=== PATIENT | female | born 1945 | race Caucasian/White ===

== ENCOUNTER 2019-04-26 00:23 | Emergency (ER) | payer BC, MEDICARE ==
[2019-04-26] MEDS ORDERED: Bacitracin Oint 1 GM U/D Packet TOP ONE (00:33)
--- NOTE | 2019-04-26 01:23 | EDM.PDOC ---
ED HPI GENERAL MEDICAL PROBLEM - General Chief Complaint: Laceration Stated Complaint: FALL VIA NORTH Time Seen by Provider: 04/26/19 00:45 Source of Information: Reports: Patient, EMS, Family History Limitations: Reports: No Limitations - History of Present Illness INITIAL COMMENTS - FREE TEXT/NARRATIVE: 73-year-old female who fell earlier this evening and was evaluated by EMS, had a very small laceration on her left eyebrow and she was cleared medically. A second call however after a second fall, resulting in a large laceration and more repetitive questioning and she seemed intoxicated. She is brought in for evaluation. Associated Symptoms: Reports: Confusion. Denies: Malaise, Nausea/Vomiting, Shortness of Breath - Related Data Allergies Allergy/AdvReac Type Severity Reaction Status Date / Time diphenhydramine Allergy Other Verified 04/26/19 00:42 [From Benadryl] latex Allergy Other Verified 04/26/19 00:42 Sgweaaz-Fbc-Msl Reductase Allergy Other Verified 04/26/19 00:42 Inhibitor metal Allergy Other Uncoded 04/26/19 00:42 Home Meds: Home Meds Aspirin [Halfprin] 81 mg PO DAILY 04/26/19 [History] Past Medical History HEENT History: Reports: Cataract Cardiovascular History: Reports: High Cholesterol, Hypertension Gastrointestinal History: Reports: GERD Musculoskeletal History: Reports: Arthritis, Osteoporosis Endocrine/Metabolic History: Reports: Diabetes, Type II - Past Surgical History HEENT Surgical History: Reports: Cataract Surgery GI Surgical History: Reports: Other (See Below) Other GI Surgeries/Procedures: rectal prolapse surgery Social & Family History - Tobacco Use Smoking Status *Q: Never Smoker - Caffeine Use Caffeine Use: Reports: Coffee - Alcohol Use Days Per Week of Alcohol Use: 7 Number of Drinks Per Day: 2 Total Drinks Per Week: 14 - Recreational Drug Use Recreational Drug Use: No ED ROS GENERAL - Review of Systems Review Of Systems: See Below Constitutional: Denies: Fever, Chills HEENT: Denies: Vision Change Respiratory: Denies: Shortness of Breath Cardiovascular: Denies: Chest Pain Musculoskeletal: Reports: Other (Ankles have been weak and bothering her) Skin: Reports: Other (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) ED EXAM, SKIN/RASH Exam: See Below Exam Limited By: No Limitations General Appearance: Alert, No Apparent Distress, Other (Repetitive questioning) Eye Exam: Bilateral Eye: EOMI Head: Other (Patient has a 3 cm laceration just lateral to the left eyebrow) Neck: Supple Respiratory/Chest: No Respiratory Distress Extremities: No: Pedal Edema Neurological: Alert, Oriented, Confused (Slightly confused with repetitive questioning) Course - Vital Signs Last Recorded V/S: Last Vital Signs Temp 96.8 F 04/26/19 00:36 Pulse 86 04/26/19 00:36 Resp 18 04/26/19 00:36 BP 141/84 H 04/26/19 00:36 Pulse Ox 93 L 04/26/19 00:36 - Orders/Labs/Meds Labs: Laboratory Tests 04/26/19 Range/Units 00:45 Ethyl Alcohol 286 mg/dL Meds: Medications Discontinued Medications Generic Name Dose Route Start Last Admin Trade Name Kathrine PRN Reason Stop Dose Admin Bacitracin 1 dose 04/26/19 00:33 04/26/19 00:43 Bacitracin Oint 1 Gm TOP 04/26/19 00:34 1 dose ONETIME ONE Administration Lidocaine HCl 5 ml 04/26/19 00:33 04/26/19 00:43 Xylocaine-Mpf 1% INJECT 04/26/19 00:34 5 ml ONETIME ONE Administration - Re-Assessments/Exams Free Text/Narrative Re-Assessment/Exam: 04/26/19 01:23 CT of the head was obtained and an EtOH was drawn. CT showed no acute findings, her EtOH was 0.286. 4 5-0 Ethilon sutures used to close the laceration. Topical bacitracin and a dressing was applied. Sutures can be removed in 7 days. She should avoid such heavy intoxication in the future. Departure - Departure Time of Disposition: 02:08 Disposition: Home, Self-Care 01 Clinical Impression: Laceration of eyebrow and forehead Qualifiers: Encounter type: initial encounter Laterality: left Qualified Code(s): S01.81XA - Laceration without foreign body of other part of head, initial encounter Alcohol intoxication Qualifiers: Complication of substance-induced condition: uncomplicated Qualified Code(s): F10.920 - Alcohol use, unspecified with intoxication, uncomplicated - Discharge Information Instructions: Laceration Care, Adult, [id number] Referrals: PCP,None [Primary Care Provider] - Forms: ED Department Discharge Care Plan Goals: Cool compresses over your laceration will help with swelling, keep the wound clean while healing. Sutures can be removed in 7 days. Return sooner if you develop concerns of infection or not healing satisfactorily.
--- NOTE | 2019-04-26 01:38 | CRLCT ---
INDICATION: Fall, confusion TECHNIQUE: CT head without contrast. COMPARISON: None FINDINGS: CSF spaces: Within normal limits for age. Brain parenchyma: The haas-white differentiation is normal. No sign of mass, hemorrhage, or midline shift. Skull base and calvarium: The visualized paranasal sinuses and mastoid air cells demonstrate no acute or significant findings. The visualized orbits are grossly unremarkable. No skull fractures. IMPRESSION: No acute intracranial abnormality. Please note that all CT scans at this facility use dose modulation, iterative reconstruction, and/or weight-based dosing when appropriate to reduce radiation dose to as low as reasonably achievable. Dictated by Shelbie Ribera MD @ Apr 26 2019 1:34AM Signed by Dr. Shelbie Ribera @ Apr 26 2019 1:37AM
== END 2019-04-26 02:08 | disposition home or self-care (01) ==
LOC: JP.ED 00:23
DX: S01.81XA Laceration without foreign body of other part of head, initial encounter (principal); F10.920 Alcohol use, unspecified with intoxication, uncomplicated; E78.00 Pure hypercholesterolemia, unspecified; I10 Essential (primary) hypertension; K21.9 Gastro-esophageal reflux disease without esophagitis; E11.9 Type 2 diabetes mellitus without complications; Z88.8 Allergy status to other drugs, medicaments and biological substances; Z79.82 Long term (current) use of aspirin; W18.39XA Other fall on same level, initial encounter
CPT/HCPCS: 12013; 36415; 70450; 99283; G0480; J2001